=== PATIENT | female | born 1930 | race Caucasian/White ===

== ENCOUNTER 2016-11-23 07:41 | Inpatient (IN) | payer MEDICARE, BC ==
[~2016-11-23 07:41] MED LIST: ALEVE220 MG; ALTACE2.5 MG; ASPIRIN81 M1 PO; BACTRIM DS TAB1 EAC2 PO; CALCIUM + D 6001 TAB; CALCIUM600 M1 PO; CENTRUM SILVER1 TA; CIPRO250 MG; FUROSEMIDE40 MG; GLUCOSAMINE & C1 CAP PO; ISTALOL2.5 ML OP; LASIX20 M1 PO; LOVASTATIN20 MG PO; METHYLPREDNISOLO8 MG PO; METOPXL50 PO; MOBIC15 MG PO; MULTIVITAMINS1 EAC6 PO; NEXIUM40 MG; PREDNISONE20 MG PO; PRILOSEC OTC20 M1 PO; PRINIVIL10 M1 PO; SENNA8.6 M2 PO; SENOKOT8.6 MG; VISTARIL25 MG PO; VITAMIN D31000 UNI3 PO; [UNRECOGNIZED DRUG - OTHER]
[2016-11-23 09:20] LABS: PROTHROMBIN TIME 11.6 SECONDS (9.0-13.6)
[2016-11-24 05:42] LABS: BASO % 0.1 % (0-2); HCT-HEMATOCRIT 28.5 % (34.0-49.0); HGB-HEMOGLOBIN 9.1 gm/dl (12.0-15.5); IMMATURE GRANULOCYTES ABSOLUTE 0.04 tho/cmm (0-0.03); IMMATURE GRANULOCYTES PERCENT 0.3 % (0-0.3); LYMPH % 13.7 % (20-45); LYMPH ABSOLUTE COUNT 1.9 tho/cmm (0.8-4.5); MCH (MEAN CORPUSCULAR HGB) 26.3 pg (28.0-32.0); MCHC MEAN CORPUSCULAR HGB CONC 31.9 % (32.0-36.0); MCV (MEAN CELL VOLUME) 82.4 fl (82.0-96.0); MONO % 10.3 % (0-12); MONOCYTE ABSOLUTE COUNT 1.4 tho/cmm (0.0-1.2); NEUTROPHIL ABSOLUTE COUNT 10.2 tho/cmm (1.6-8.0); NEUTROPHIL-AUTOMATED 10.2 tho/cmm (1.6-8.0); NEUTROPHILS % 75.6 % (40-80); PLATELET COUNT 345 tho/cmm (150-450); RED BLOOD COUNT 3.46 mil/cmm (4.00-5.20); RED CELL DISTRIBUTION WIDTH 17.5 % (12.4-16.4); WHITE BLOOD COUNT 13.5 tho/cmm (4.0-10.0)
[2016-11-24 05:55] LABS: ANION GAP 13 mmol/L (0-20); BLOOD UREA NITROGEN 22 mg/dl (6-24); CALCIUM 8.6 mg/dl (8.5-10.5); CARBON DIOXIDE-VENOUS 27 mmol/L (22-32); CHLORIDE 108 mmol/l (96-110); GLUCOSE 119 mg/dL (70-110); POTASSIUM 4.8 mmol/L (3.7-5.1); SODIUM 143 mmol/L (135-145); eGFR VALUE FOR BLACK 43 mL/Min
[2016-11-26] MEDS ORDERED: ASPIRIN325 M3 PO (08:46)
[2016-11-26] MEDS ORDERED: TYLENOL325 M2 PO (09:24)
[2016-11-26] MEDS ORDERED: MILK OF MAGNESIA PO (09:26)
[2016-11-26] MEDS ORDERED: MIRALAX17 G2 PO (09:26)
[2016-11-26] MEDS ORDERED: SENOKOT-S TABL1 EACH PO ×2 (09:27→09:28)
== END 2016-11-26 10:15 | DRG 470 ==
LOC: SHSC 07:41 → ORE 10:29 → PACU 12:54 → 5EA 14:00
PROVIDERS: Family Medicine; ADMIT Orthopaedic Surgery Orthopaedic Surgery of the Spine
PROC: 0SR902A Replacement of Right Hip Joint with Metal on Polyethylene Synthetic Substitute, Uncemented, Open Approach (ICD-10-PCS; principal; 2016-11-23)
DX: M16.11 Unilateral primary osteoarthritis, right hip (principal); I11.0 Hypertensive heart disease with heart failure; I50.9 Heart failure, unspecified; N39.0 Urinary tract infection, site not specified; D62 Acute posthemorrhagic anemia; N28.9 Disorder of kidney and ureter, unspecified; K21.9 Gastro-esophageal reflux disease without esophagitis; B96.20 Unspecified Escherichia coli [E. coli] as the cause of diseases classified elsewhere; Z79.82 Long term (current) use of aspirin; Z79.899 Other long term (current) drug therapy
CPT/HCPCS: C1776; J0171; J0690; J1885; J2270; J2405; J2795